=== PATIENT | male | born 1990 | race Caucasian/White ===

== ENCOUNTER 2017-07-13 23:35 | Emergency (ER) | payer SELFPAY ==
[~2017-07-13] VITALS: Ht 167.6 cm; Wt 65.0 kg
[2017-07-13 23:36] VITALS: BP 130/81; PULSE 90; RESP 16; TEMP 98.6; O2SAT 99
--- NOTE | 2017-07-14 00:15 | PD ---
HPI . Ear Pain Chief Complaint: ENT Complaint Time Seen by Provider: 23:59 Travel History International Travel<30 days: No Contact w/Intl Traveler<30days: No Traveled to known affect area: No History of Present Illness HPI Patient is a 26-year-old male who presents with a 9 hour history of left-sided ear pain. Pain is rated 8/10. 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 He also reports any pulling or tugging of the outer ear aggravates the pain. Relieving factors include lying on the affected side applying pressure. Patient also reports dizziness some minor blurry vision and slight discomfort in light. Patient denies any syncope nor nausea & vomiting. PFSH Past Medical History Medical History: Denies Significant Hx Diminished Hearing: No Tetanus Vaccination: < 5 Years Influenza Vaccination: No Past Surgical History Surgical History: No Previous Surgery Social History Alcohol Use: No Tobacco Use: Yes Substance Use: No Allergies-Medications (Allergen,Severity, Reaction): Coded Allergies: No Known Allergies (Unverified , 07/13/17) Review of Systems Except as stated in HPI: all other systems reviewed are Neg General / Constitutional: No: Fever, Chills Eyes: Positive: Blurred Vision, Photophobia HENT: Positive: Lightheadedness, Earache Neurologic: No: Syncope Physical Exam Narrative GENERAL: Awake and alert and in no acute distress. SKIN: Warm and dry. HEAD: Normocephalic/atraumatic. EYES: Pupils are equal. Extraocular movements are intact. ENT: Left frontal sinus tenderness. Right tympanic membrane viewed to be erythematous with tiny white plaques also on membrane. NECK: Normal range of motion. CARDIOVASCULAR: Regular rate and rhythm. RESPIRATORY: Nonlabored respirations. MUSCULOSKELETAL: Atraumatic. NEUROLOGICAL: Nonfocal. PSYCHIATRIC: Appropriate mood and affect. Data Data Last Documented VS Vital Signs Date Time Temp Pulse Resp B/P (MAP) Pulse Ox O2 Delivery O2 Flow Rate FiO2 07/13/17 23:36 98.6 90 16 130/81 (97) 99 Room Air MDM Medical Decision Making Medical Screen Exam Complete: Yes Emergency Medical Condition: Yes Differential Diagnosis Differential diagnosis of ear pain includes eustachian tube dysfunction, otitis externa, otitis media, TMJ syndrome Narrative Course Patient presents with acute left ear pain. He definitely has otitis media by exam. He also has plaque-like lesions on the tympanic membrane. He will be treated for both otitis media and for a possible fungal otitis externa. We will give him a referral to ENT. Diagnosis Primary Impression: Left otitis media Qualified Codes: H66.002 - Acute suppurative otitis media without spontaneous rupture of ear drum, left ear Referrals: Jj Joyner MD Patient Instructions: Ear Infection (DC), General Instructions Med/Other Pt SpecificInfo: Prescription(s) given Scripts Acetic Acid-Propylene Glycol Otic Drops (Acetic Acid Otic Drops) 2% Soln 5 DROP LEFT EAR Q6HR for Infection for 10 Days, #1 BOTTLE 0 Refills Prov: Kristi Mcfadden MD 07/14/17 Hydrocodone-Acetaminophen ([place]) 5 Mg-325 Mg Tab 1 TAB PO Q4H Y for PAIN, #12 TAB 0 Refills Prov: Kristi Mcfadden MD 07/14/17 Amoxicillin (Amoxicillin) 875 Mg Tab 875 MG PO BID for Infection for 7 Days, #14 TAB 0 Refills Prov: Kristi Mcfadden MD 07/14/17 Disposition: DISCHARGE HOME Condition: Stable Kristi Mcfadden MD Jul 14, 2017 00:15
[2017-07-14] MEDS ORDERED: ACET2SOL LEFT EAR (00:25)
[2017-07-14] MEDS ORDERED: AMOX875T PO (00:25)
[2017-07-14] MEDS ORDERED: NORC5TAB PO (00:25)
[2017-07-14] MEDS ORDERED: AMOXICILLIN 875 MG TAB PO ONE (00:30)
[2017-07-14] MEDS ORDERED: ACETAMINOPHEN/HYDROcodone 325 MG/5 MG TAB PO ONE (00:30)
== END 2017-07-14 00:57 | disposition home or self-care (01) ==
LOC: NEPD 23:35
DX: H66.002 Acute suppurative otitis media without spontaneous rupture of ear drum, left ear (principal); Z72.0 Tobacco use
CPT/HCPCS: 99284